=== PATIENT | female | born 1990 | race Caucasian/White ===

== ENCOUNTER 2017-08-07 07:42 | Day surgery (SDC) | payer SELFPAY, BC ==
[~2017-08-07 07:42] MED LIST: Bupivacaine 0.25% 10 ML SDV ONE; EPINEPHrine 1 MG/ML SDV ONE; Gentamicin 40 MG/ML 2 ML Vial ONE; Lidocaine 2% with EPINEPHrine 1:100,000 20 ML MDV ONE; ceFAZolin 1 GM Vial ONE
[2017-08-07] MEDS ORDERED: Lactated Ringers 1,000 ML IV SCH (08:00)
[2017-08-07] MEDS ORDERED: ceFAZolin 2 GM in Premix Bag 1 BAG IV ONE (08:00)
[2017-08-07] MEDS ORDERED: Acetaminophen/HYDROcodone 325-5 MG Tab PO PRN (08:00)
[2017-08-07] MEDS ORDERED: Bupivacaine 0.25%/EPINEPHrine 1:200,000 10 ML SDV INJECT ONE (08:00)
[2017-08-07] MEDS ORDERED: Midazolam 1 MG/ML 2 ML SDV ONE ×2 (08:31→09:31)
--- NOTE | 2017-08-07 09:16 | PCM.PREANE ---
Preanesthetic Assessment - Anesthesia/Transfusion/Family Hx Anesthesia History: Prior Anesthesia Without Reaction Family History of Anesthesia Reaction: No Transfusion History: No Prior Transfusion(s) Intubation History: Unknown - Review of Systems General: No Symptoms Pulmonary: No Symptoms Cardiovascular: No Symptoms Gastrointestinal: No Symptoms Neurological: No Symptoms Other: Reports: None - Physical Assessment Height: 1.68 m Weight: 82.554 kg ASA Class: 2 Mental Status: Alert & Oriented x3 Airway Class: Mallampati = 2 Dentition: Reports: Normal Dentition Thyro-Mental Finger Breadths: 3 Mouth Opening Finger Breadths: 2 ROM/Head Extension: Full Lungs: Clear to Auscultation, Normal Respiratory Effort Cardiovascular: Regular Rate, Regular Rhythm - Lab Values: Laboratory Last Values Urine HCG, Qual NEGATIVE (NEGATIVE) 08/07/17 08:15 - Allergies Allergies/Adverse Reactions: Allergies Allergy/AdvReac Type Severity Reaction Status Date / Time latex Allergy Itching Verified 08/05/17 08:55 - Blood Blood Available: No - Anesthesia Plan Pre-Op Medication Ordered: None - Acknowledgements Anesthesia Type Planned: General Anesthesia Pt an Appropriate Candidate for the Planned Anesthesia: Yes Alternatives and Risks of Anesthesia Discussed w Pt/Guardian: Yes Pt/Guardian Understands and Agrees with Anesthesia Plan: Yes PreAnesthesia Questionnaire HEENT History: Reports: None Musculoskeletal History: Reports: Other (See Below) Other Musculoskeletal History: ankylosing spondylitis, HLA-B27 positive Neurological History: Reports: Seizure Other Neuro History: states seizures in the past, none since 2009 Psychiatric History: Reports: Other (See Below) (h/o ADHD) - Past Surgical History Head Surgeries/Procedures: Reports: None HEENT Surgical History: Reports: Oral Surgery Other HEENT Surgeries/Procedures: wisdom teeth extraction Musculoskeletal Surgical History: Reports: Arthroscopic Knee (Rt. knee ACL repair '12, one screw removed under local anesthesia in the office) - SUBSTANCE USE Smoking Status *Q: Never Smoker Recreational Drug Use History: No - HOME MEDS Home Medications: Home Meds Adalimumab [Humira] 1 injection SUBCUT ASDIRECTED 08/05/17 [History] - CURRENT (IN HOUSE) MEDS Current Meds: Current Medications Hydrocodone Bitart/Acetaminophen ([place] 325-5 Mg) 1 tab PO Q4H PRN PRN Reason: Pain Lactated Ringer's (Ringers, Lactated) 1,000 mls @ 125 mls/hr IV ASDIRECTED RYANN Discontinued Medications Bacitracin (Bacitracin) Confirm Administered Dose 50,000 units .ROUTE .STK-MED ONE Stop: 08/07/17 07:28 Bupivacaine HCl (Sensorcaine-Mpf 0.25%) Confirm Administered Dose 40 ml .ROUTE .STK-MED ONE Stop: 08/07/17 07:27 Bupivacaine HCl/Epinephrine Bitart (Marcaine 0.25%/Epinephrine 1:200,000) 10 ml INJECT ONETIME ONE Stop: 08/07/17 08:01 Cefazolin Sodium (Ancef) Confirm Administered Dose 1 gm .ROUTE .STK-MED ONE Stop: 08/07/17 07:27 Epinephrine HCl (Adrenalin) Confirm Administered Dose 1 mg .ROUTE .STK-MED ONE Stop: 08/07/17 07:27 Gentamicin Sulfate (Gentamicin) Confirm Administered Dose 80 mg .ROUTE .STK-MED ONE Stop: 08/07/17 07:27 Cefazolin Sodium/Dextrose 2 gm (/ Premix) 50 mls @ 100 mls/hr IV ONETIME ONE Stop: 08/07/17 08:29 Lidocaine/Epinephrine (Xylocaine 2% With Epinephrine 1:100,000) Confirm Administered Dose 40 ml .ROUTE .STK-MED ONE Stop: 08/07/17 07:27 Midazolam HCl (Versed 1 Mg/Ml) Confirm Administered Dose 2 mg .ROUTE .STK-MED ONE Stop: 08/07/17 08:32
[2017-08-07] MEDS ORDERED: Ondansetron 4 MG/2 ML SDV ONE (09:31)
[2017-08-07] MEDS ORDERED: Rocuronium 10 MG/ML 10 ML Syringe ONE (09:31)
[2017-08-07] MEDS ORDERED: Propofol 200 MG/20 ML SDV ONE (09:31)
[2017-08-07] MEDS ORDERED: Lidocaine 2% 5 ML SDV ONE (09:31)
[2017-08-07] MEDS ORDERED: fentaNYL 250 MCG/5 ML SDV ONE (09:31)
[2017-08-07] MEDS ORDERED: Sodium Chloride 0.9% 20 ML ONE (09:40)
[2017-08-07] MEDS ORDERED: ceFAZolin 1 GM Vial ONE (09:40)
[2017-08-07] MEDS ORDERED: Dexamethasone 4 MG/ML 5 ML MDV ONE (10:19)
[2017-08-07] MEDS ORDERED: HYDROmorphone 2 MG/ML SDV ONE (10:19)
[2017-08-07] MEDS ORDERED: diphenhydrAMINE 50 MG/ML SDV ONE (10:19)
[2017-08-07] MEDS ORDERED: fentaNYL 100 MCG/2 ML SDV IVPUSH PRN (10:50)
--- NOTE | 2017-08-07 13:30 | PCM48HPAN ---
Post Anesthesia Note - EVALUATION WITHIN 48HRS OF ANESTHETIC Vital Signs in Normal Range: Yes Patient Participated in Evaluation: Yes Respiratory Function Stable: Yes Airway Patent: Yes Cardiovascular Function Stable: Yes Hydration Status Stable: Yes Pain Control Satisfactory: Yes Nausea and Vomiting Control Satisfactory: Yes Mental Status Recovered: Yes Resp Rate: 20 - COMMENTS/OBSERVATIONS Free Text/Narrative:: no anesthesia problems
--- NOTE | 2017-08-07 15:10 | PCM.OPNOTE ---
- General Post-Op/Procedure Note Date of Surgery/Procedure: 08/07/17 Operative Procedure(s): bilateral silicone submuscular breast augmentation Pre Op Diagnosis: cosmetic Post-Op Diagnosis: Same Anesthesia Technique: General ET Tube, Local Primary Surgeon: Nuvia Montes Slide Fasteners Inspector: Hailey Capellan Complications: None Condition: Good Free Text/Narrative:: Intake & Output 08/06/17 08/07/17 08/07/17 23:59 07:59 15:59 Intake Total 2300 Balance 2300
--- NOTE | 2017-08-08 11:29 | OR ---
SURGEON: ALLEN COLIN MD DATE OF PROCEDURE: 08/07/2017 PREOPERATIVE DIAGNOSIS: Cosmetic. POSTOPERATIVE DIAGNOSIS: Cosmetic. PROCEDURE: Bilateral silicone submuscular breast augmentation. BRIGHT CUTTER: STEFANIE Schulz ANESTHESIA: General ET tube with local. INDICATIONS: Ms. Canada is a 27-year-old female seen today in evaluation for bilateral breast augmentation. Risks and benefits were discussed with her including, but not limited to, bleeding, infection, damage to underlying or overlying structures, possible need for future interventions, and possible scarring. PROCEDURE IN DETAIL: After informed consent was obtained and placed on the chart, the patient was brought to the operating theater and laid in supine position. After adequate general anesthesia was obtained, the area was prepped and draped and a time-out was completed to confirm side and site. After adequate anesthesia and preoperative antibiotics, the area had been prepped and draped, the borders of the breast were marked previously and attention was then paid to the inframammary fold incision. Local anesthesia was infiltrated into the area for hemostasis and pain control. An incision was made over the inframammary fold planned incision of length of 5 cm. Dissection was first carried with the knife and then Bovie electrocautery until the lateral pectoralis muscle edge was reached. Dissection was then carried submuscular and the inferior border was released from the inframammary fold. Once adequately released, meticulous hemostasis was obtained and the pocket was further developed. Care was taken not to extend the dissection laterally in order to maintain the position of the implant. Once adequately dissected, the inframammary fold was reinforced using a 3-0 PDS suture in a [id number] fashion. This was also done laterally to prevent migration of the implant. Once the pocket was developed, epinephrine-soaked laps were placed into the pocket and the mirror dissection was done on the opposite side. Once a symmetry procedure was completed, attention was then paid back to the right side and the epinephrine-soaked laps were removed and meticulous hemostasis was ensured. The pocket was then copiously irrigated with normal saline and then triple antibiotic solution. The right implant was then prepped in the normal fashion using a no-touch technique and Lewis funnel and placed into the submuscular pocket. Once adequately placed, the skin and fascia were closed using a 3-0 Monocryl Stratafix suture in a running type fashion for the fascia, in a running fashion for the dermis, and a subcuticular fashion for the skin. The left implant was then prepped in the same fashion and placed into the pocket and again closed using the 3-0 Stratafix suture for the fascia, dermis, and skin. The patient tolerated this well and was sat up and symmetry was appreciated. The patient was laid back into the flat position and the incisions were dressed with Mastisol and Steri-Strips. Fluffs were placed over top of this and a compression bra was placed at the end of the case. The patient tolerated this well. All counts needles were correct at the end of the case. IMPLANT INFORMATION: Style SRM 405 mL Natrelle Inspira breast implant, reference number [id number], left serial #[id number], right serial #[id number]. FOLLOWUP INSTRUCTIONS: The patient will see us in clinic tomorrow or sooner if any problems, questions, or concerns. A prescription was given for [place] and pain control. HEGGTJANEY / IRA /[id number] LUCHO
== END 2017-08-07 13:30 | disposition home or self-care (01) ==
LOC: MW.SDS 07:42
PROVIDERS: ATTEND Plastic Surgery
DX: Z41.1 Encounter for cosmetic surgery (principal); Z88.0 Allergy status to penicillin; Z88.5 Allergy status to narcotic agent; Z91.040 Latex allergy status
CPT/HCPCS: 19325; 81025; A9270; C1789; J0171; J0690; J1100; J1170; J1200; J1580; J2250; J2405; J3010; J7120; J2704